=== PATIENT | female | born 1990 | race Caucasian/White ===

== ENCOUNTER 2017-01-25 04:56 | Emergency (ER) | payer BC ==
--- NOTE | ~2017-01-25 | CT2 ---
[facility] A Service [facility] RADIOLOGY TEXT RESULTS PATIENT: SHIRA NULL LOCATION: [facility] : [birth year] UNIT #: [id number] AGE: [address]: MIKE BAIRD APRN SEX: F ORDER DR: [id number] [facility] [place] [address] [facility] [place], [place] [address] [id number] E MR#: [id number] Acc #: [id number] NAME: SHIRA NULL. : 1990 SEX: F STUDY DATE/TIME: 01/25/2017 5:33 UNIT: [facility] ROOM: STUDY DESCRIPTION: CT Abd and Pelv W Cont Attending Physician: Mike Baird Aprn Ordering Physician: Mike Baird Aprn Primary Care Physician: Brent Pires M.D. MEDICAL IMAGING REPORT This report is preliminary unless electronic signature is present EXAM CT abdomen and pelvis with contrast INDICATIONS Upper abdominal pain for the past 3 days. PROCEDURE Contrast-enhanced CT of the abdomen and pelvis. This CT exam was performed with one or more of the following radiation dose reduction techniques: automatic exposure control, adjustment of mA and/or kV according to patient size, and iterative reconstruction. COMPARISON 03/16/2016 FINDINGS Abdomen with contrast: Included lung bases are clear. Liver, spleen, kidneys, adrenal, glands, pancreas and gallbladder unremarkable. Bowel loops are nondilated. Pelvis with contrast: No pelvic mass or fluid. No aggressive appearing bone lesion. IMPRESSION No acute findings. Dictated by... Sahil Alonso M.D. THIS IS AN ELECTRONICALLY VERIFIED REPORT Sahil Alonso M.D. at 01/28/2017 7:30 AM [facility] A Service [facility] RADIOLOGY TEXT RESULTS PATIENT: SHIRA NULL LOCATION: [facility] : [birth year] UNIT #: [id number] AGE: [address]: MIKE BAIRD APRN SEX: F ORDER DR: Martha TD: 01/25/2017 08:01 JOB #: [id number] MEDICAL IMAGING REPORT Page 1 of 1 COPY
[2017-01-25 04:15] LABS: BASOPHIL% 0.3 % (0-2.5); HEMATOCRIT 46.6 % (35.0-45.0); HEMOGLOBIN 15.5 gm/dL (12.0-16.0); LYMPHOCYTE# 1.4 X10e3 (1.0-3.5); LYMPHOCYTE% 10.1 % (17.0-45.0); MEAN CELL VOLUME 95.2 FL (83-96); MEAN CORPUSCULAR HEMOGLOBIN 31.6 PG (28-34); MEAN CORPUSCULAR HGB CONC 33.2 g/dL (30-36); MEAN PLATELET VOLUME 8.5 FL (6.5-11.5); MONOCYTE# 0.3 X10e3 (0-1.0); MONOCYTE% 2.3 % (3.0-12.0); NEUTROPHIL# 12.5 X10e3 (1.5-7.1); NEUTROPHIL% 87.3 % (40-75); PLATELET COUNT 340 X10e3 (140-420); RED CELL DISTRIBUTION WIDTH 12.6 % (11.0-15.5); WHITE BLOOD COUNT 14.3 X10e3 (4.0-10.5)
[2017-01-25 04:16] LABS: DIFF IND NO
[2017-01-25 04:38] LABS: URINE APPEARANCE CLEAR; URINE BILIRUBIN NEG (NEG); URINE BLOOD NEG (NEG); URINE COLOR DK YELLOW; URINE GLUCOSE NEG (NEG); URINE KETONE TRACE (NEG); URINE LEUKOCYTE ESTERASE NEG (NEG); URINE NITRATE NEG (NEG); URINE PROTEIN 2+ (NEG)
[2017-01-25 04:40] LABS: ALBUMIN SERUM 5.5 g/dL (3.5-5.0); BILIRUBIN, DIRECT 0.2 mg/dL (0.0-0.2); BILIRUBIN,INDIRECT 0.8 mg/dL (0.0-0.9); BUN/CREATININE RATIO 28.88; CALCIUM SERUM 10.2 mg/dL (8.4-10.2); CREATININE SERUM 0.9 mg/dL (0.6-1.4); GLOM FILT RATE Estimated 88.9 mL/min (>60); POTASSIUM 4.3 mmol/L (3.5-5.1)
[2017-01-25 04:41] LABS: URINE BACTERIA AUWI NEG (NEGATIVE); URINE SQUAMOUS EPITHELIAL CELL OCC /[HPF]
[2017-01-25 04:48] LABS: CULTURE INDICATED? NO
[2017-01-25 04:49] LABS: URINE MUCUS PRESENT
[~2017-01-25 04:56] MED LIST: NO MEDICATIONS; NORCO 5/325 TAB1 TAB PO; NORCO 7.5-3251 EACH PO; PHENERGAN PR; PHENERGAN25 M1 PO; PRILOSEC20 M1 PO; SERTRALINE HCL50 M1 PO; VOLTAREN50 MG PO; ZOFRAN ODT4 MG PO; ZOFRAN ODT4 MG SL
[2017-01-25 05:45] LABS: AMPHETAMINE NEG (NEG); BARBITURATES NEG (NEG); BENZODIAZEPINES POS (NEG); COCAINE NEG (NEG); MARIJUANA POS (NEG); OPIATES POS (NEG); TRICYCLIC ANTIDEPRESSANTS NEG (NEG); U METHADONE NEG (NEG)
== END 2017-01-25 07:51 | disposition home or self-care (01) ==
LOC: CED 04:56
PROVIDERS: Nurse Practitioner Family
DX: R10.13 Epigastric pain (principal); R11.2 Nausea with vomiting, unspecified; F12.10 Cannabis abuse, uncomplicated; F17.210 Nicotine dependence, cigarettes, uncomplicated
CPT/HCPCS: 36415; 74177; 80048; 80076; 80307; 81003; 83690; 84703; 85025; 96361; 96365; 96372; 96375; 99284; J0500; J2270; J2405; J2550; Q9967